=== PATIENT | male | born 1965 | race African-American/Black ===

== ENCOUNTER 2019-12-07 22:48 | Inpatient (IN) | payer MEDICARE, MEDICAID ==
[2019-12-07] MEDS ORDERED: IPRATROPIUM/ALBUTEROL 0.5-2.5 MG/3 ML AMPUL NEB ONE (23:08)
--- NOTE | 2019-12-07 23:12 | ER Document Report ---
ED Medical Screen (RME) - General Chief Complaint: High Blood Pressure Stated Complaint: POSSIBLE ASTHMA Time Seen by Provider: 12/07/19 23:01 Primary Care Provider: CHAVO PRIETO [Primary Care Provider] - Follow up as needed Mode of Arrival: Wheelchair Information source: Patient Notes: Patient is a 54-year-old male with history of asthma and hypertension presenting to the emergency department with concern for possible asthma exacerbation. Patient reports he has been having increasing shortness of breath over the last couple of weeks, he states he is out of his asthma medications and has not had any blood pressure medications in greater than 2 months. He reports that breathing is more difficult when lying down. He is also complaining of bilateral lower extremity edema which is new for him. Patient denies any history of CHF. He denies any chest pain. He has not had fever or chills. 3+ pitting edema to bilateral lower extremities. Mild expiratory wheezes noted bilaterally, crackles noted bilaterally on auscultation. Patient is not in any acute distress at this time in triage. He is hypertensive, mildly tachycardic but is not tachypneic or hypoxic. I have greeted and performed a rapid initial assessment of this patient. A comprehensive ED assessment and evaluation of the patient, analysis of test results and completion of the medical decision making process will be conducted by additional ED providers. I have specifically instructed the patient or family members with the patient to immediately return to any nursing staff should anything change in the patient's condition or with their chief complaint. - Related Data Allergies/Adverse Reactions: shellfish derived Allergy (Verified 12/07/19 23:07) Physical Exam - Vital signs Vitals: Temp Pulse Resp BP Pulse Ox 98.6 F 113 H 16 173/123 H 98 12/07/19 22:57 12/07/19 22:57 12/07/19 22:57 12/07/19 22:57 12/07/19 22:57 Course - Vital Signs Vital signs: Temp Pulse Resp BP Pulse Ox 98.6 F 113 H 16 173/123 H 98 12/07/19 22:57 12/07/19 22:57 12/07/19 22:57 12/07/19 22:57 12/07/19 22:57 Doctor's Discharge - Discharge Referrals: CHAVO PRIETO [Primary Care Provider] - Follow up as needed
[2019-12-07 23:28] LABS: ABSOLUTE BASOPHILS # (AUTO) 0.1 10^3/uL (0.0-0.2); ABSOLUTE EOSINOPHILS # (AUTO) 0.1 10^3/uL (0.0-0.6); ABSOLUTE LYMPHOCYTES (AUTO) 1.6 10^3/uL (0.5-4.7); ABSOLUTE MONOCYTES (AUTO) 0.8 10^3/uL (0.1-1.4); ABSOLUTE NEUT (AUTO) 6.6 10^3/uL (1.7-8.2); BASOPHILS % (AUTO) 0.7 % (0-2); EOSINOPHILS % (AUTO) 1.1 % (0-6); HEMATOCRIT 37.7 % (37.9-51.0); HEMOGLOBIN 12.3 g/dL (13.5-17.0); LYMPHOCYTES % (AUTO) 17.6 % (13-45); MEAN CORPUSCULAR HEMOGLOBIN 28.4 pg (27.0-33.4); MEAN CORPUSCULAR HGB CONC 32.8 g/dL (32.0-36.0); MEAN CORPUSCULAR VOLUME 87 fl (80-97); MONOCYTES % (AUTO) 9.1 % (3-13); PLATELET COUNT 214 10^3/uL (150-450); RED BLOOD COUNT 4.35 10^6/uL (4.35-5.55); RED CELL DISTRIBUTION WIDTH 15.8 % (11.5-14.0); SEGMENTED NEUTROPHILS % (AUTO) 71.5 % (42-78); TOTAL CELLS COUNTED % (AUTO) 100 %; WHITE BLOOD COUNT 9.2 10^3/uL (4.0-10.5)
--- NOTE | 2019-12-07 23:40 | RADIOLOGY REPORT (SQ) ---
CLINICAL INDICATION: SOB, EVAL FOR CHF. TECHNIQUE: A single portable AP view was obtained of the chest at 2325 hours. December 07, 2019 COMPARISON: None. FINDINGS: The cardiomediastinal silhouette is enlarged. The lungs demonstrate mild interstitial prominence, unknown chronicity. No evidence of effusion or pneumothorax. The visualized bones are unremarkable. IMPRESSION: Mild interstitial prominence, unknown chronicity. No overt edema. Enlarged cardiac silhouette.
[2019-12-07 23:49] LABS: ALBUMIN 3.7 g/dL (3.5-5.0); ALKALINE PHOSPHATASE 116 U/L (38-126); ANION GAP 9 (5-19); ASPARTATE AMINO TRANSFERASE 56 U/L (17-59); BILIRUBIN,DIRECT 0.5 mg/dL (0.0-0.4); BILIRUBIN,TOTAL 1.4 mg/dL (0.2-1.3); BLOOD UREA NITROGEN 20 mg/dL (7-20); CALCIUM 8.7 mg/dL (8.4-10.2); CARBON DIOXIDE 25 mmol/L (22-30); CHLORIDE 102 mmol/L (98-107); GLUCOSE 284 mg/dL (75-110); POTASSIUM 4.2 mmol/L (3.6-5.0)
[2019-12-08] MEDS ORDERED: ENALAPRILAT DIHYDRATE INJ/PF 1.25 MG/1 ML SDV IV ONE (01:02)
[2019-12-08] MEDS ORDERED: FUROSEMIDE INJ/PF 20 MG/2 ML SDV IV ONE (01:02)
[2019-12-08] MEDS ORDERED: HYDRALAZINE HCL INJ/PF 20 MG/1 ML SDV IV ONE (01:10)
--- NOTE | 2019-12-08 01:10 | ER Document Report ---
ED General - General Chief Complaint: High Blood Pressure Stated Complaint: POSSIBLE ASTHMA Time Seen by Provider: 12/07/19 23:01 Primary Care Provider: CHAVO PRIETO [Primary Care Provider] - Follow up as needed Mode of Arrival: Wheelchair - HPI Notes: Patient is a 54-year-old gentleman, significantly poor historian, who presents to the emergency department for evaluation of shortness of breath. He has been short of breath for the last 3 to 4 weeks. He moved here from [place] a few months ago. He has a history of high blood pressure, diabetes, and asthma. He states he has run out of all of his medications. He is unsure as to what medications he has been on in the past. 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 He states his been short of breath for the last few weeks. He denies any chest pain or chest tightness. He states that his breathing seems to be worsened by exertion. He denies any orthopnea, but has had some paroxysmal nocturnal dyspnea. He also states that over the last 24 hours he developed swelling in his feet and ankles. He is never had that in the past. He denies any current pain. - Related Data Allergies/Adverse Reactions: shellfish derived Allergy (Verified 12/07/19 23:07) Past Medical History - General Information source: Patient - Social History Smoking Status: Current Every Day Smoker Frequency of alcohol use: Occasional Drug Abuse: Marijuana Family History: Hypertension, Malignancy Patient has homicidal ideation: No - Past Medical History Cardiac Medical History: Reports: Hx Hypercholesterolemia, Hx Hypertension Pulmonary Medical History: Reports: Hx Asthma Endocrine Medical History: Reports: Hx Diabetes Mellitus Type 2 Review of Systems - Review of Systems Constitutional: Weakness Cardiovascular: See HPI Respiratory: See HPI Musculoskeletal: See HPI -: Yes All other systems reviewed and negative Physical Exam - Vital signs Vitals: Temp Pulse Resp BP Pulse Ox 98.6 F 113 H 16 173/123 H 98 12/07/19 22:57 12/07/19 22:57 12/07/19 22:57 12/07/19 22:57 12/07/19 22:57 - Notes Notes: This is a 54-year-old male, obese, who appears to stated age, mild amount of distress. He is tachypneic, mildly tachycardic. Vital signs reviewed, please refer to chart. Head is normocephalic, atraumatic. Pupils equal round, reactive to light. Neck is supple without meningismus. Heart is regular rate and rhythm. Lungs revealed mild bibasilar Rales. Abdomen is obese, nontender, normoactive bowel sounds throughout. Extremities without cyanosis, clubbing. He does have 2+ pretibial edema down into the feet and ankles bilaterally. Posterior calves are nontender. Peripheral pulses are equal. Skin is warm and dry. Patient is awake, alert, neurological exam is nonfocal. Course - Re-evaluation Re-evalutation: 12/08/19 01:11 Patient presents to the emergency department for evaluation. He has a history of high blood pressure, high cholesterol, and diabetes. He has no history of CHF per himself as well as significant other. He has been off his medications for several weeks. He had laboratory investigations and imaging as ordered through triage. He is tachycardic here. He is tachypneic. His blood pressures are markedly elevated. His laboratory investigations are consistent with new onset CHF. I do not know what his baseline creatinine is. I ordered IV enalapril, Lasix. Initially considered hydralazine, but will treat with labetalol given his tachycardia as well as markedly elevated blood pressure. Patient is currently stable. Awaiting the remainder of his results, will contact medicine for admission. 12/08/19 01:59 Patient responded well to medications. His blood pressure is markedly improved. His tachypnea has improved as well. Patient will be admitted for further care. - Vital Signs Vital signs: Temp Pulse Resp BP Pulse Ox 98.6 F 113 H 26 H 155/92 H 99 12/07/19 23:05 12/07/19 22:57 12/08/19 01:36 12/08/19 01:36 12/08/19 01:36 - Laboratory Result Diagrams: 12/07/19 23:14 12/07/19 23:14 Laboratory results interpreted by me: 12/07/19 12/07/19 12/07/19 23:14 23:14 23:14 Hgb 12.3 L Hct 37.7 L RDW 15.8 H Sodium 136.1 L Creatinine 1.90 H Est GFR ( Amer) 45 L Est GFR (MDRD) Non-Af 37 L Glucose 284 H Total Bilirubin 1.4 H Direct Bilirubin 0.5 H ALT 100 H NT-Pro-B Natriuret Pep 4720 H - Diagnostic Test Radiology reviewed: Image reviewed, Reports reviewed Radiology results interpreted by me: 12/08/19 01:14 Chest X-Ray 12/07/19 23:08 IMPRESSION: Mild interstitial prominence, unknown chronicity. No overt edema. Enlarged cardiac silhouette. - EKG Interpretation by Me Additional EKG results interpreted by me: 12/08/19 01:14 Sinus tachycardia with a rate of 106 bpm. Normal axis intervals. Nonspecific ST changes, but no acute changes concerning for ischemia or infarction. Discharge - Discharge Clinical Impression: New onset of congestive heart failure, Noncompliance with medication regimen Condition: Stable Disposition: ADMITTED INPATIENT Admitting Provider: Ken (Hospitalist) Unit Admitted: Telemetry Referrals: LOCALMD,NO [Primary Care Provider] - Follow up as needed
[2019-12-08] MEDS ORDERED: LABETALOL HCL INJ 20 MG/4 ML DISP.SYRIN IV ONE (01:13)
[2019-12-08 01:44] LABS: VENOUS BLOOD BASE EXCESS -0.8 mmol/L; VENOUS BLOOD HCO3 24.5 mmol/L (20-32); VENOUS BLOOD PH 7.37 (7.30-7.42)
[2019-12-08] MEDS ORDERED: DEXTROSE 50%-WATER 25 GM/50 ML DISP.SYRIN IV PRN ×2 (02:00)
[2019-12-08] MEDS ORDERED: GLUCAGON,HUMAN RECOMB 1 MG INJ IM PRN (02:00)
[2019-12-08] MEDS ORDERED: DEXTROSE 40% GEL 15 GM TUBE PO PRN ×2 (02:00)
--- NOTE | 2019-12-08 02:16 | PDOC H&P ---
History of Present Illness Admission Date/PCP: 12/08/19 02:05 NO LOCALMD History of Present Illness: MAYRA CALLOWAY is a 54 year old male who moved here from [facility] a couple of months ago and has not gotten his Medicaid switched over. He has a history of asthma, diabetes, and hypertension. Despite the fact that he had insurance in [place], he has not taken his blood pressure medicine in about a year. He only needs an albuterol inhaler to control his asthma. He said he was on oral medications for his diabetes. He came in [facility] because he had been having swelling in his feet for a couple of days. He said he did not have orthopnea but he did say he was waking up about every 45 minutes and he thought it was due to his asthma. He is not hypoxic. He was very hypertensive. His chest x-ray was negative but he had lower extremity edema and JVD. He has no prior history of congestive heart failure. He said he is never had a heart attack. He does not know the names of any of his medications that he was on previously, just that he took pills for diabetes and he knew he was on albuterol. He said he did not know how many medications he was on for his blood pressure. Past Medical History Cardiac Medical History: Reports: Hyperlipidema, Hypertension Pulmonary Medical History: Reports: Asthma Endocrine Medical History: Reports: Diabetes Mellitus Type 2 Social History Smoking Status: Current Every Day Smoker Family History Family History: Hypertension, Malignancy Parental Family History Reviewed: Yes Children Family History Reviewed: NA Sibling(s) Family History Reviewed.: Yes Medication/Allergy Home Medications: Unobtainable 12/07/19 Allergies/Adverse Reactions: shellfish derived Allergy (Verified 12/07/19 23:07) Review of Systems All systems: reviewed and no additional remarkable complaints except as stated - All systems were reviewed and were negative except as noted in the HPI Physical Exam Vital Signs: Temp Pulse Resp BP Pulse Ox 98.6 F 113 H 26 H 155/92 H 99 12/07/19 23:05 12/07/19 22:57 12/08/19 01:36 12/08/19 01:36 12/08/19 01:36 Intake & Output 12/06/19 12/07/19 12/08/19 06:59 06:59 06:59 Weight 106.594 kg General appearance: PRESENT: no acute distress, cooperative, disheveled, morbidly obese Head exam: PRESENT: atraumatic, normocephalic Eye exam: PRESENT: EOMI, PERRLA. ABSENT: conjunctival injection, nystagmus, scleral icterus Ear exam: PRESENT: normal external ear exam Mouth exam: PRESENT: moist, neck supple Teeth exam: PRESENT: poor dentation Throat exam: ABSENT: post pharyngeal erythema Neck exam: PRESENT: full ROM, JVD. ABSENT: carotid bruit, lymphadenopathy, meningismus, tenderness, thyromegaly Respiratory exam: PRESENT: clear to auscultation victor hugo, symmetrical, unlabored. ABSENT: accessory muscle use, chest wall tenderness, crackles, prolonged expiratory phas, rhonchi, tachypnea, wheezes Cardiovascular exam: PRESENT: RRR, +S1, +S2 Pulses: PRESENT: normal carotid pulses Vascular exam: PRESENT: normal capillary refill GI/Abdominal exam: PRESENT: normal bowel sounds, soft, other - Pendulous abdominal pannus. ABSENT: distended, guarding, rebound, tenderness Extremities exam: PRESENT: pedal edema, +2 edema. ABSENT: clubbing Musculoskeletal exam: PRESENT: normal inspection. ABSENT: deformity Neurological exam: PRESENT: alert, awake, oriented to person, oriented to place, oriented to time, CN II-XII grossly intact. ABSENT: motor sensory deficit Psychiatric exam: PRESENT: flat affect Skin exam: PRESENT: dry, warm Results Laboratory Results: 12/07/19 23:14 12/07/19 23:14 12/07/19 12/07/19 12/08/19 23:14 23:14 01:05 WBC 9.2 RBC 4.35 Hgb 12.3 L Hct 37.7 L MCV 87 MCH 28.4 MCHC 32.8 RDW 15.8 H Plt Count 214 Seg Neutrophils % 71.5 VBG pH 7.37 VBG pCO2 43.0 VBG HCO3 24.5 VBG Base Excess -0.8 Sodium 136.1 L Potassium 4.2 Chloride 102 Carbon Dioxide 25 Anion Gap 9 BUN 20 Creatinine 1.90 H Est GFR ( Amer) 45 L Glucose 284 H Calcium 8.7 Magnesium 2.1 Total Bilirubin 1.4 H AST 56 Alkaline Phosphatase 116 Total Protein 7.0 Albumin 3.7 12/07/19 23:14 NT-Pro-B Natriuret Pep 4720 H Impressions: Chest X-Ray 12/07/19 23:08 IMPRESSION: Mild interstitial prominence, unknown chronicity. No overt edema. Enlarged cardiac silhouette. Assessment and Plan - Diagnosis (1) New onset of congestive heart failure Is this a current diagnosis for this admission?: Yes Plan: We will give him some Lasix will get an echocardiogram. We will try to get his blood pressure under control. Further medication adjustment depends on the results the echocardiogram. 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: without skilled nursing use Diabetes mellitus complication status: with kidney complications Diabetes mellitus complication detail: with chronic kidney disease Chronic kidney disease stage: stage 3 (moderate) Qualified Code(s): E11.22 - Type 2 diabetes mellitus with diabetic chronic kidney disease; N18.3 - Chronic kidney disease, stage 3 (moderate) Is this a current diagnosis for this admission?: Yes Plan: Insulin sliding scale, hemoglobin A1c, diabetic diet (4) Asthma Qualifiers: Asthma severity: mild Asthma persistence: intermittent Asthma complication type: uncomplicated Qualified Code(s): J45.20 - Mild intermittent asthma, uncomplicated Is this a current diagnosis for this admission?: Yes Plan: PRN albuterol (5) Noncompliance with medication regimen Is this a current diagnosis for this admission?: Yes Plan: Discussed with him the importance of being compliant with his medication regimen to prevent further deterioration of his chronic conditions and to prevent development of new ones. - Time Time Spent with patient: 35 or more minutes Anticipated discharge: Home Within: within 72 hours - Inpatient Certification Based on my medical assessment, after consideration of the patient's comorbidities, presenting symptoms, or acuity I expect that the services needed warrant INPATIENT care.: Yes I certify that my determination is in accordance with my understanding of Medicare's requirements for reasonable and necessary INPATIENT services [42 CFR 412.3e].: Yes Medical Necessity: Significant Comorbidiites Make Outpatient Treatment Too Risky, Need Close Monitoring Due to Risk of Patient Decompensation, Need For C ontinuous Telemetry Monitoring, Risk of Complication if Not Cared For in Hospital
[2019-12-08] MEDS: FUROSEMIDE INJ/PF 20 MG/2 ML SDV IV SCH ×3 (05:38→21:03)
[2019-12-08] MEDS: HEPARIN SOD (PORCINE) 5,000 UNIT/ML 1 ML VIAL SUBCUT SCH ×3 (05:41→21:03)
[2019-12-08] MEDS: INSULIN LISPRO 100 UNIT/ML 3 ML VIAL SUBCUT SCH ×4 (07:47→22:16)
--- NOTE | 2019-12-08 08:43 | EKG REPORT ---
SEVERITY:- ABNORMAL ECG - SINUS TACHYCARDIA PROBABLE LEFT ATRIAL ABNORMALITY ANTERIOR INFARCT, OLD : Confirmed by: Theo Rodriguez MD 08-Dec-2019 08:42:34
[2019-12-08] MEDS ORDERED: ALBUTEROL SULFATE HFA (90 MCG/PUFF) 8 GM MDI (1 MDI/ER DISP) IH PRN (12:55)
[2019-12-08] MEDS: ALBUTEROL SULFATE 0.083% NEB 2.5 MG/3 ML AMPUL NEB PRN (14:18)
--- NOTE | 2019-12-08 15:16 | Progress Note ---
Provider Note Provider Note: The patient is a 54-year-old male with a past medical history of hypertension, hyperlipidemia, asthma, diabetes, and medication noncompliance who was admitted early this morning by the web designer for new onset CHF, hypertensive urgency, and uncontrolled diabetes mellitus. Overnight events, vital signs, laboratory results, imaging studies, EKG, H&P, and orders reviewed. Agree with the plan of care as established with the previous provider. In addition, will start on Losartan. Even should patient's LvEF warrant start of Entresto (echo pending); his uninsured status would be prohibitive. Will monitor renal function closely. No known Hx of CKD, however, Cr 1.90 with BUN 20 is suggestive of CKD. Will obtain HgA1C with AM lab work. Will resume home dose Advair. Resume Albuterol HFA and/or nebs as needed for symptom management. major gifts manager and patient educator are consulted.
[2019-12-08] MEDS: LOSARTAN POTASSIUM 25 MG TABLET PO SCH (16:14)
[2019-12-08] MEDS ORDERED: (PENDING PHARMACY ID) (Fluticasone/Salmeterol 2 PUFF) IH SCH (18:00)
[2019-12-08] MEDS: HYDRALAZINE HCL INJ/PF 20 MG/1 ML SDV IV PRN (20:57)
[2019-12-09] MEDS: HYDRALAZINE HCL INJ/PF 20 MG/1 ML SDV IV PRN ×3 (04:55→16:41)
[2019-12-09] MEDS: HEPARIN SOD (PORCINE) 5,000 UNIT/ML 1 ML VIAL SUBCUT SCH ×2 (05:01→14:22)
[2019-12-09] MEDS: FUROSEMIDE INJ/PF 20 MG/2 ML SDV IV SCH (05:02)
[2019-12-09 06:20] LABS: HEMATOCRIT 38.3 % (37.9-51.0); HEMOGLOBIN 12.8 g/dL (13.5-17.0); MEAN CORPUSCULAR HEMOGLOBIN 28.7 pg (27.0-33.4); MEAN CORPUSCULAR HGB CONC 33.4 g/dL (32.0-36.0); MEAN CORPUSCULAR VOLUME 86 fl (80-97); PLATELET COUNT 204 10^3/uL (150-450); RED BLOOD COUNT 4.45 10^6/uL (4.35-5.55); RED CELL DISTRIBUTION WIDTH 15.9 % (11.5-14.0); WHITE BLOOD COUNT 8.4 10^3/uL (4.0-10.5)
[2019-12-09 06:50] LABS: ANION GAP 8 (5-19); BLOOD UREA NITROGEN 19 mg/dL (7-20); CALCIUM 8.8 mg/dL (8.4-10.2); CARBON DIOXIDE 27 mmol/L (22-30); CHLORIDE 101 mmol/L (98-107); CHOLESTEROL 109.46 mg/dL (0-200); GLUCOSE 225 mg/dL (75-110); POTASSIUM 3.7 mmol/L (3.6-5.0); TRIGLYCERIDES 48 mg/dL (<150)
[2019-12-09 07:01] LABS: DIRECT LDL 70 mg/dL (<100)
[2019-12-09] MEDS: INSULIN LISPRO 100 UNIT/ML 3 ML VIAL SUBCUT SCH ×3 (08:11→16:19)
[2019-12-09] MEDS: ALBUTEROL SULFATE 0.083% NEB 2.5 MG/3 ML AMPUL NEB PRN (09:56)
[2019-12-09] MEDS ORDERED: FLUTICASONE/VILANTEROL 200-25 MCG/DOSE IH SCH (10:00)
[2019-12-09] MEDS: LOSARTAN POTASSIUM 25 MG TABLET PO SCH (10:12)
[2019-12-09] MEDS ORDERED: ACETAMINOPHEN 325 MG TABLET PO PRN (10:17)
--- NOTE | 2019-12-09 16:04 | PDOC DISCHARGE SUMMARY ---
Impression - Admit/DC Date/PCP Admission Date/Primary Care Provider: 12/08/19 02:05 Discharge Date: 12/09/19 - Discharge Diagnosis (1) Asthma Is this a current diagnosis for this admission?: Yes (2) Diabetes mellitus Is this a current diagnosis for this admission?: Yes (3) Hypertensive urgency Is this a current diagnosis for this admission?: Yes (4) New onset of congestive heart failure Is this a current diagnosis for this admission?: Yes (5) Noncompliance with medication regimen Is this a current diagnosis for this admission?: Yes - Additional Information Discharge Diet: Cardiac, Diabetic Discharge Activity: Activity As Tolerated, Balance Activity w/Rest, Weigh Daily Referrals: [facility] [Provider Group] Prescriptions: Albuterol Sulfate [Albuterol Sulfate Hfa] 2 puff IH Q4HP PRN #1 PRN Reason: RESCUE Albuterol Sulfate [Albuterol Sulfate Hfa] 2 puff IH Q4HP PRN #1 [email or web address] PRN Reason: Blood-Glucose Meter [Blood Glucose Meter] 1 unit MC DAILY PRN #1 unit PRN Reason: Carvedilol [Coreg 3.125 mg Tablet] 3.125 mg PO Q12 #60 tablet Losartan Potassium [Cozaar 25 mg Tablet] 25 mg PO DAILY #30 tablet Lancets 1 each MC DAILY #30 each Furosemide [Lasix 20 mg Tablet] 20 mg PO QAM #30 tablet Metformin HCl 500 mg PO BID #60 tablet Home Medications: Fluticasone/Salmeterol [Advair 250-50 Diskus 14 Dose/Diskus] 2 puff IH BID 12/08/19 Acetaminophen [Tylenol 325 mg Tablet] 650 mg PO Q4HP PRN tablet 12/09/19 Albuterol Sulfate [Albuterol Sulfate Hfa] 2 puff IH Q4HP PRN #1 12/09/19 Albuterol Sulfate [Albuterol Sulfate Hfa] 2 puff IH Q4HP PRN #1 [id number] 12/09/19 Blood-Glucose Meter [Blood Glucose Meter] 1 unit MC DAILY PRN #1 unit 12/09/19 Carvedilol [Coreg 3.125 mg Tablet] 3.125 mg PO Q12 #60 tablet 12/09/19 Furosemide [Lasix 20 mg Tablet] 20 mg PO QAM #30 tablet 12/09/19 Lancets 1 each MC DAILY #30 each 12/09/19 Losartan Potassium [Cozaar 25 mg Tablet] 25 mg PO DAILY #30 tablet 12/09/19 Metformin HCl 500 mg PO BID #60 tablet 12/09/19 History of Present Illiness History of Present Illness: Per H&P by Dr. Rogers: MAYRA CALLOWAY is a 54 year old male who moved here from [facility] a couple of months ago and has not gotten his Medicaid switched over. He has a history of asthma, diabetes, and hypertension. Despite the fact that he had insurance in [place], he has not taken his blood pressure medicine in about a year. He only needs an albuterol inhaler to control his asthma. He said he was on oral medications for his diabetes. He came in [facility] because he had been having swelling in his feet for a couple of days. He said he did not have orthopnea but he did say he was waking up about every 45 minutes and he thought it was due to his asthma. He is not hypoxic. He was very hypertensive. His chest x-ray was negative but he had lower extremity edema and JVD. He has no prior history of congestive heart failure. He said he is never had a heart attack. He does not know the names of any of his medications that he was on previously, just that he took pills for diabetes and he knew he was on albuterol. He said he did not know how many medications he was on for his blood pressure. Hospital Course Hospital Course: The patient was admitted to the medical floor on continuous cardiac telemetry. He was diuresed with IV furosemide. Blood pressure control is maintained with IV hydralazine. He was started on low-dose carvedilol, losartan, and p.o. furosemide to continue at discharge. Echocardiogram has been completed; formal report pending. Preliminary review is reassuring with a preserved ejection fraction. The patient's hemoglobin A1c is 7.7% he is discharged home on metformin. He is advised of the importance of continuing both a cardiac and consistent carb diet. The patient's blood pressures are stable, he is maintaining oxygen saturations while ambulatory on room air without increased work of breathing, peripheral edema has resolved. He is discharged home in stable condition. He is advised to follow-up with primary care provider within 1 week. He is instructed on the importance of a heart healthy/diabetic diet. He is instructed to take his medications as prescribed. Weigh daily and report any weight gain greater than 2 pounds overnight to his health care provider. Return to the emergency department as needed for concerning symptoms. Physical Exam Vital Signs: Temp Pulse Resp BP Pulse Ox 98.6 F 99 20 147/91 H 99 12/09/19 08:00 12/09/19 10:00 12/09/19 10:00 12/09/19 08:00 12/09/19 10:00 Intake & Output 12/08/19 12/09/19 12/10/19 06:59 06:59 06:59 Intake Total 1913 Output Total 225 5020 Balance -225 -3562 Weight 123.2 kg 121.7 kg General appearance: PRESENT: no acute distress, cooperative, obese, well- developed, well-nourished Head exam: PRESENT: atraumatic, normocephalic Eye exam: PRESENT: conjunctiva pink, EOMI, PERRLA. ABSENT: scleral icterus Mouth exam: PRESENT: moist, tongue midline Respiratory exam: PRESENT: clear to auscultation victor hugo, symmetrical, unlabored, ot her - Ambulatory on room air. ABSENT: rales, rhonchi, wheezes Cardiovascular exam: PRESENT: RRR, +S1, +S2. ABSENT: diastolic murmur, rubs, systolic murmur Pulses: PRESENT: normal dorsalis pedis pul Vascular exam: PRESENT: normal capillary refill Extremities exam: PRESENT: full ROM, pedal edema, +1 edema - BLE. ABSENT: calf tenderness, clubbing, +2 edema Musculoskeletal exam: PRESENT: ambulatory Neurological exam: PRESENT: alert, awake, oriented to person, oriented to place, oriented to time, oriented to situation, CN II-XII grossly intact. ABSENT: motor sensory deficit Psychiatric exam: PRESENT: appropriate affect, normal mood. ABSENT: homicidal ideation, suicidal ideation Skin exam: PRESENT: dry, intact, warm. ABSENT: cyanosis, rash Results Laboratory Results: WBC 8.4 10^3/uL (4.0-10.5) 12/09/19 05:44 RBC 4.45 10^6/uL (4.35-5.55) 12/09/19 05:44 Hgb 12.8 g/dL (13.5-17.0) L 12/09/19 05:44 Hct 38.3 % (37.9-51.0) 12/09/19 05:44 MCV 86 fl (80-97) 12/09/19 05:44 MCH 28.7 pg (27.0-33.4) 12/09/19 05:44 MCHC 33.4 g/dL (32.0-36.0) 12/09/19 05:44 RDW 15.9 % (11.5-14.0) H 12/09/19 05:44 Plt Count 204 10^3/uL (150-450) 12/09/19 05:44 Lymph % (Auto) 17.6 % (13-45) 12/07/19 23:14 [place] % (Auto) 9.1 % (3-13) 12/07/19 23:14 Eos % (Auto) 1.1 % (0-6) 12/07/19 23:14 Baso % (Auto) 0.7 % (0-2) 12/07/19 23:14 Absolute Neuts (auto) 6.6 10^3/uL (1.7-8.2) 12/07/19 23:14 Absolute Lymphs (auto) 1.6 10^3/uL (0.5-4.7) 12/07/19 23:14 Absolute Monos (auto) 0.8 10^3/uL (0.1-1.4) 12/07/19 23:14 Absolute Eos (auto) 0.1 10^3/uL (0.0-0.6) 12/07/19 23:14 Absolute Basos (auto) 0.1 10^3/uL (0.0-0.2) 12/07/19 23:14 Seg Neutrophils % 71.5 % (42-78) 12/07/19 23:14 VBG pH 7.37 (7.30-7.42) 12/08/19 01:05 VBG pCO2 43.0 mmHg (35-63) 12/08/19 01:05 VBG HCO3 24.5 mmol/L (20-32) 12/08/19 01:05 VBG Base Excess -0.8 mmol/L 12/08/19 01:05 Sodium 135.7 mmol/L (137-145) L 12/09/19 05:44 Potassium 3.7 mmol/L (3.6-5.0) 12/09/19 05:44 Chloride 101 mmol/L (98-107) 12/09/19 05:44 Carbon Dioxide 27 mmol/L (22-30) 12/09/19 05:44 Anion Gap 8 (5-19) 12/09/19 05:44 BUN 19 mg/dL (7-20) 12/09/19 05:44 Creatinine 1.64 mg/dL (0.52-1.25) H 12/09/19 05:44 Est GFR ( Amer) 53 (>60) L 12/09/19 05:44 Est GFR (MDRD) Non-Af 44 (>60) L 12/09/19 05:44 Glucose 225 mg/dL (75-110) H 12/09/19 05:44 POC Glucose 82 mg/dL (70-110) 12/09/19 11:12 Hemoglobin A1c % 7.7 % (4.7-6.0) H 12/09/19 05:44 Calcium 8.8 mg/dL (8.4-10.2) 12/09/19 05:44 Magnesium 2.1 mg/dL (1.6-2.3) 12/07/19 23:14 Total Bilirubin 1.4 mg/dL (0.2-1.3) H 12/07/19 23:14 Direct Bilirubin 0.5 mg/dL (0.0-0.4) H 12/07/19 23:14 Neonat Total Bilirubin Not Reportable 12/07/19 23:14 Neonat Direct Bilirubin Not Reportable 12/07/19 23:14 Neonat Indirect Bili Not Reportable 12/07/19 23:14 AST 56 U/L (17-59) 12/07/19 23:14 ALT 100 U/L (<50) H 12/07/19 23:14 Alkaline Phosphatase 116 U/L (38-126) 12/07/19 23:14 NT-Pro-B Natriuret Pep 4720 pg/mL (<125) H 12/07/19 23:14 Total Protein 7.0 g/dL (6.3-8.2) 12/07/19 23:14 Albumin 3.7 g/dL (3.5-5.0) 12/07/19 23:14 Triglycerides 48 mg/dL (<150) 12/09/19 05:44 Cholesterol 109.46 mg/dL (0-200) 12/09/19 05:44 LDL Cholesterol Direct 70 mg/dL (<100) 12/09/19 05:44 VLDL Cholesterol 10.0 mg/dL (10-31) 12/09/19 05:44 HDL Cholesterol 33 mg/dL (>40) L 12/09/19 05:44 12/07/19 23:14 NT-Pro-B Natriuret Pep 4720 H Impressions: Chest X-Ray 12/07/19 23:08 IMPRESSION: Mild interstitial prominence, unknown chronicity. No overt edema. Enlarged cardiac silhouette. Plan Plan of Treatment: Patient is discharged home in stable condition. He is advised to follow-up with primary care provider within 1 week. He is instructed take his medications as able. A cardiac diet. Weigh daily and report any weight gain greater than 2 pounds overnight to primary care provider. Return to emergency department as needed for concerning symptoms. Time Spent: Greater than 30 Minutes Stroke Is this a Stroke Patient?: No Acute Heart Failure - Is this a Heart Failure Patient?: Yes Documentation of LVEF assessment?: Planned for after discharge LVEF - Reason: Echo pending; will call patient w/ results LVEF: LVEF Greater Than 40% Anticoagulant Therapy: N/A Discharged on Evidence-Based Beta Blockers: Yes Reason(s) not discharged on ARNI: Not previously tolerating ACEI or ARB Discharged on ARB?: Yes Discharged on ACEI?: N/A Discharged on ARB For LVEF <35%, discharged on Aldosterone Antagonist?: N/A (LVEF > or = 35%) Follow-up Appointment scheduled within 7 days?: Yes
[2019-12-09 17:23] VITALS: BP 148/86
--- NOTE | 2019-12-09 21:27 | XCELERA REPORT ---
[address] [address] Transthoracic Echocardiogram Report Name: MAYRA CALLOWAY Age: 54 yrs Gender: Male : 1965 Patient Status: Inpatient Patient Location: [address] [place] [address] Study Date: 12/09/2019 08:24 AM History: CHF Height: 69 in Weight: 235 lb BSA: 2.2 m2 Procedure: A complete two-dimensional transthoracic echocardiogram was performed (2D, M-mode, spectral and color flow Doppler). The study was technically adequate with some images being suboptimal in quality. Reason For Study: acute chf Previous Evaluation: No previous studies were available. History: Shortness of breath. CHF. Ordering Physician: SABINA CASILLAS Performed By: Desirae Tirado Interpretation Summary Left ventricular systolic function is normal. The Ejection Fraction estimate is 55-60% Doppler measurements suggest pseudonormalized left ventricular relaxation, which is associated with grade II/IV or mild to moderate diastolic dysfunction The right ventricle is normal in size and function. There is a mild amount of mitral regurgitation There is no aortic valve stenosis There is a mild amount of tricuspid regurgitation There is mild pulmonary hypertension by echo Minimal pericardial effusion. MMode/2D Measurements & Calculations RVDd: 2.6 cm LVIDd: 6.2 cm FS: 34.9 % Ao root diam: 3.6 cm IVSd: 1.1 cm LVIDs: 4.1 cm EDV(Teich): 195.9 ml Ao root area: 10.2 cm2 LVPWd: 1.2 cm ESV(Teich): 72.3 ml EF(Teich): 63.1 % Doppler Measurements & Calculations MV E max barbara: MV dec slope: Ao V2 max: LV V1 max P.0 cm/sec 742.1 cm/sec2 170.6 cm/sec 7.2 mmHg MV A max barbara: MV dec time: Ao max PG: LV V1 max: 135.5 cm/sec 0.20 sec 11.6 mmHg 134.6 cm/sec MV E/A: 1.1 MR max barbara: PA V2 max: TR max barbara: 564.8 cm/sec 87.1 cm/sec 277.8 cm/sec MR max PG: PA max P.0 mmHg TR max P.6 mmHg 31.1 mmHg Left Ventricle The left ventricle is mildly to moderately dilated. There is moderate concentric left ventricular hypertrophy. Left ventricular systolic function is normal. The Ejection Fraction estimate is 55-60%. Doppler measurements suggest pseudonormalized left ventricular relaxation, which is associated with grade II/IV or mild to moderate diastolic dysfunction. The left ventricular wall motion is normal. Right Ventricle The right ventricle is normal in size and function. Atria The right atrium is normal. The left atrium is borderline dilated. Mitral Valve The mitral valve is grossly normal. There is a mild amount of mitral regurgitation. Aortic Valve The aortic valve is trileaflet. The aortic valve opens well. There is no aortic valve stenosis. No aortic regurgitation is present. Tricuspid Valve The tricuspid valve is not well visualized, but is grossly normal. There is a mild amount of tricuspid regurgitation. Right ventricular systolic pressure is estimated to be elevated at 40-50mmHg. There is mild pulmonary hypertension by echo. Pulmonic Valve The pulmonic valve is normal in structure and function. There is a trace amount of pulmonic regurgitation. Great Vessels The aortic root is normal size. Effusions Minimal pericardial effusion. : SABINA CASILLAS Anil
[2019-12-10] MEDS ORDERED: FUROSEMIDE 40 MG TABLET PO SCH (10:00)
== END 2019-12-09 17:20 | disposition home or self-care (01) | DRG 305 ==
LOC: ER 22:48 → EH 12-08 02:05 → 4S 12-08 03:11
PROVIDERS: ADMIT Family Medicine; ATTEND Registered Nurse
DX: I16.0 Hypertensive urgency (principal); E11.65 Type 2 diabetes mellitus with hyperglycemia; I11.0 Hypertensive heart disease with heart failure; I50.9 Heart failure, unspecified; I13.0 Hypertensive heart and chronic kidney disease with heart failure and stage 1 through stage 4 chronic kidney disease, or unspecified chronic kidney disease; E11.22 Type 2 diabetes mellitus with diabetic chronic kidney disease; N18.3 Chronic kidney disease, stage 3 (moderate); T46.5X6A Underdosing of other antihypertensive drugs, initial encounter; Z91.128 Patient's intentional underdosing of medication regimen for other reason; J45.20 Mild intermittent asthma, uncomplicated; E78.5 Hyperlipidemia, unspecified; Z79.51 Long term (current) use of inhaled steroids; Z79.84 Long term (current) use of oral hypoglycemic drugs
CPT/HCPCS: 36415; 71045; 80048; 80053; 80061; 82803; 82962; 83036; 83735; 83880; 85025; 85027; 93005; 93010; 93306; 94640; 96374; 96375; 99285; J0360; J1644; J1815; J1940; J3490

== ENCOUNTER 2020-03-04 09:31 | Emergency (ER) | payer MEDICARE, MEDICAID ==
[2020-03-04 10:00] VITALS: BP 190/109
[2020-03-04 10:49] LABS: ABSOLUTE BASOPHILS # (AUTO) 0.1 10^3/uL (0.0-0.2); ABSOLUTE EOSINOPHILS # (AUTO) 0.2 10^3/uL (0.0-0.6); ABSOLUTE LYMPHOCYTES (AUTO) 1.4 10^3/uL (0.5-4.7); ABSOLUTE MONOCYTES (AUTO) 0.7 10^3/uL (0.1-1.4); ABSOLUTE NEUT (AUTO) 5.7 10^3/uL (1.7-8.2); BASOPHILS % (AUTO) 0.8 % (0-2); HEMATOCRIT 48.6 % (37.9-51.0); HEMOGLOBIN 17.3 g/dL (13.5-17.0); LYMPHOCYTES % (AUTO) 17.5 % (13-45); MEAN CORPUSCULAR HEMOGLOBIN 28.8 pg (27.0-33.4); MEAN CORPUSCULAR HGB CONC 35.7 g/dL (32.0-36.0); MEAN CORPUSCULAR VOLUME 81 fl (80-97); MONOCYTES % (AUTO) 8.9 % (3-13); PLATELET COUNT 219 10^3/uL (150-450); RED BLOOD COUNT 6.03 10^6/uL (4.35-5.55); RED CELL DISTRIBUTION WIDTH 16.9 % (11.5-14.0); SEGMENTED NEUTROPHILS % (AUTO) 70.8 % (42-78); TOTAL CELLS COUNTED % (AUTO) 100 %; WHITE BLOOD COUNT 8.1 10^3/uL (4.0-10.5)
[2020-03-04 10:55] LABS: APPEARANCE,URINE CLOUDY; BILIRUBIN,URINE NEGATIVE (NEGATIVE); COLOR,URINE AMBER; GLUCOSE, URINE 50 mg/dL (NEGATIVE); KETONES,URINE 20 mg/dL (NEGATIVE); LEUKOCYTE ESTERASE,URINE SMALL (NEGATIVE); NITRITE,URINE NEGATIVE (NEGATIVE); PROTEIN,URINE >=500 mg/dL (NEGATIVE); URINE SPECIFIC GRAVITY 1.025
[2020-03-04 11:09] LABS: ALBUMIN 4.5 g/dL (3.5-5.0); ALKALINE PHOSPHATASE 79 U/L (38-126); ANION GAP 12 (5-19); ASPARTATE AMINO TRANSFERASE 27 U/L (17-59); BILIRUBIN,DIRECT 0.4 mg/dL (0.0-0.4); BLOOD UREA NITROGEN 28 mg/dL (7-20); CARBON DIOXIDE 30 mmol/L (22-30); CHLORIDE 96 mmol/L (98-107); GLUCOSE 192 mg/dL (75-110); POTASSIUM 4.2 mmol/L (3.6-5.0)
[2020-03-04] MEDS ORDERED: NORMAL SALINE 1000 ML 1,000 ML IV ONE (16:44)
--- NOTE | 2020-03-04 18:08 | ER Document Report ---
ED General - General Chief Complaint: Constipation Stated Complaint: ABDOMINAL PAIN Time Seen by Provider: 03/04/20 15:28 Mode of Arrival: Ambulatory Information source: Patient - HPI Notes: Patient presents complaining of abdominal pain. He states is intermittent and crampy. Nothing makes it better or worse. It does radiate across the lower part of his abdomen on both sides. He states he believes it is secondary to being constipated. He said his been about 2 weeks since he has had normal bowel movement. He states he is only had 2 small stools in the last 2 weeks. He states he is had some trouble with constipation in the past but has always been able to correct it with [id number] medications and currently [id number] medications are not working. No vomiting. No trouble with urination. No fevers. He denies any previous abdominal surgeries. - Related Data Allergies/Adverse Reactions: shellfish derived Allergy (Verified 03/04/20 10:02) Home Medications: Metformin Past Medical History - General Information source: Patient - Social History Smoking Status: Current Every Day Smoker Chew tobacco use (# tins/day): No Frequency of alcohol use: Social Drug Abuse: None Family History: Hypertension, Malignancy Patient has homicidal ideation: No - Past Medical History Cardiac Medical History: Reports: Hx Hypercholesterolemia, Hx Hypertension Pulmonary Medical History: Reports: Hx Asthma Endocrine Medical History: Reports: Hx Diabetes Mellitus Type 2 Psychiatric Medical History: Denies: Hx Depression Review of Systems - Review of Systems Constitutional: denies: Chills, Fever Cardiovascular: denies: Chest pain, Palpitations Respiratory: denies: Cough, Short of breath -: Yes All other systems reviewed and negative Physical Exam - Vital signs Vitals: Temp Pulse Resp BP Pulse Ox 97.6 F 80 20 190/109 H 97 03/04/20 09:59 03/04/20 09:59 03/04/20 09:59 03/04/20 09:59 03/04/20 09:59 Interpretation: Hypertensive - General General appearance: Appears well, Alert - HEENT Head: Normocephalic, Atraumatic Eyes: Normal Pupils: PERRL - Respiratory Respiratory status: No respiratory distress Chest status: Nontender Breath sounds: Normal Chest palpation: Normal - Cardiovascular Rhythm: Regular Heart sounds: Normal auscultation Murmur: No - Abdominal Inspection: Normal Distension: No distension Bowel sounds: Normal Tenderness: Tender - Minimal diffuse tenderness without rebound or guarding Organomegaly: No organomegaly - Back Back: Normal, Nontender - Extremities General upper extremity: Normal inspection, Nontender, Normal color, Normal ROM, Normal temperature General lower extremity: Normal inspection, Nontender, Normal color, Normal ROM, Normal temperature, Normal weight bearing. No: Hue's sign - Neurological Neuro grossly intact: Yes Cognition: Normal Orientation: AAOx4 Atkinson Coma Scale Eye Opening: Spontaneous Tabatha Coma Scale Verbal: Oriented Atkinson Coma Scale Motor: Obeys Commands Tabatha Coma Scale Total: 15 Speech: Normal Motor strength normal: LUE, RUE, LLE, RLE Sensory: Normal - Psychological Associated symptoms: Normal affect, Normal mood - Skin Skin Temperature: Warm Skin Moisture: Dry Skin Color: Normal Course - Re-evaluation Re-evalutation: 03/04/20 18:46 As of this time patient is still waiting on CT scan. I have turned the care of the patient over to Dr. Sheppard will follow-up on CT scan determine final disposition. - Vital Signs Vital signs: Temp Pulse Resp BP Pulse Ox 97.6 F 80 20 190/109 H 97 03/04/20 09:59 03/04/20 09:59 03/04/20 09:59 03/04/20 09:59 03/04/20 09:59 - Laboratory Result Diagrams: 03/04/20 10:20 03/04/20 10:20 Laboratory results interpreted by me: 03/04/20 03/04/20 03/04/20 10:20 10:20 10:25 RBC 6.03 H Hgb 17.3 H RDW 16.9 H Chloride 96 L BUN 28 H Creatinine 1.80 H Est GFR ( Amer) 48 L Est GFR (MDRD) Non-Af 40 L Glucose 192 H Urine Protein >=500 H Urine Glucose (UA) 50 H Urine Ketones 20 H Urine Blood SMALL H Urine Urobilinogen 2.0 H Ur Leukocyte Esterase SMALL H - Diagnostic Test Radiology reviewed: Image reviewed, Reports reviewed Discharge - Discharge Clinical Impression: Abdominal pain Qualifiers: Abdominal location: generalized Qualified Code(s): R10.84 - Generalized ab dominal pain Constipation Qualifiers: Constipation type: unspecified constipation type Qualified Code(s): K59.00 - Constipation, unspecified Condition: Stable Disposition: OTHER
--- NOTE | 2020-03-04 18:50 | ER Document Report ---
Doctor's Note Notes: 03/04/20 21:59 Patient was signed out to me. Patient was awaiting CT scan. Nursing staff approached me that patient is declining the CT scan now and just wants to go home. I attempted to go talk to the patient immediately. Upon my arrival to the room, he was not there. Patient had taken out his IV. Patient eloped from the emergency department prior to obtaining his CT scan or further work up.
== END 2020-03-04 18:54 | disposition left against medical advice (07) ==
LOC: ER 09:31
DX: K59.00 Constipation, unspecified (principal); F17.200 Nicotine dependence, unspecified, uncomplicated; I10 Essential (primary) hypertension; J45.909 Unspecified asthma, uncomplicated; E11.9 Type 2 diabetes mellitus without complications; Z79.84 Long term (current) use of oral hypoglycemic drugs; Z91.013 Allergy to seafood
CPT/HCPCS: 99281; 96360; 36415; 85025; 80053; 81001; J7030